=== PATIENT | female | born 1950 | race Caucasian/White ===

== ENCOUNTER → 2016-12-22 | Outpatient (CLI) | payer BC | LOC: GMA 15:09 | PROVIDERS: ATTEND Nurse Practitioner Acute Care | DX: E11.40 Type 2 diabetes mellitus with diabetic neuropathy, unspecified (principal) ==

== ENCOUNTER → 2017-04-18 | Outpatient (CLI) | payer BC ==
--- NOTE | 2017-04-19 09:38 | RAD ---
EXAM DESCRIPTION: Hand,Left 3 Views CLINICAL HISTORY: HAND PAIN COMPARISON: None. IMPRESSION: 3 views of the left hand show no evidence of acute fracture, focal bone destruction, or joint dislocation. Well-circumscribed increased density in the lunate probably represents bone island. Mild narrowing of the interphalangeal joints is seen consistent with early osteoarthritic changes. Soft tissues are unremarkable. Electronically signed by: Jorge Mcconnell MD 04/19/2017 9:37 AM [facility]
== END | disposition home or self-care (01) ==
LOC: RAD 12:03
PROVIDERS: ATTEND Orthopaedic Surgery
DX: M79.642 Pain in left hand (principal)

== ENCOUNTER → 2017-08-29 | Outpatient (CLI) | payer BC | END | disposition home or self-care (01) | LOC: GMAJS 10:43 | PROVIDERS: ATTEND Physician Assistant | DX: Z01.419 Encounter for gynecological examination (general) (routine) without abnormal findings (principal) ==

== ENCOUNTER → 2017-09-05 | Outpatient (CLI) | payer BC | LOC: GMAJ 14:44 | PROVIDERS: ATTEND Family Medicine | DX: E53.8 Deficiency of other specified B group vitamins (principal) ==

== ENCOUNTER → 2017-09-09 | Outpatient (CLI) | payer BC ==
--- NOTE | 2017-09-12 11:27 | CT ---
EXAM DESCRIPTION: Abdoment/Pelvis w/o Contrast CLINICAL HISTORY: 66 years Female, RLQ PAIN COMPARISON: 13 May 2015 TECHNIQUE: Transaxial images were obtained with oral and without intravenous contrast media. Sagittal and coronal reconstruction was performed.This exam was performed according to our departmental dose-optimization program, which includes automated exposure control, adjustment of the mA and/or kV according to patient size and/or use of iterative reconstruction technique. FINDINGS: The lung bases are clear. The liver and spleen are normal in appearance. No biliary ductal dilatation is observed. The gallbladder is normal in appearance. No adrenal masses are detected. The pancreas is normal in appearance. Imaging of the kidneys reveals no evidence of hydronephrosis mass cyst or calcification. Calcific atherosclerotic changes observed in the abdominal aorta without evidence of aneurysmal dilatation. An ostomy is observed in the right lower quadrant. No bone abnormality is seen. The patient is post hysterectomy. IMPRESSION: 1. An ostomy is observed in the right lower quadrant. 2. Hysterectomy Electronically signed by: Boogie Bridges MD 09/12/2017 11:26 AM CDT
== END ==
LOC: CT 08:51
PROVIDERS: ATTEND Family Medicine
DX: R10.31 Right lower quadrant pain (principal); Z90.710 Acquired absence of both cervix and uterus

== ENCOUNTER → 2018-05-11 | Outpatient (CLI) | payer BC, MEDICARE ==
--- NOTE | 2018-05-11 15:35 | MRI ---
Study: MRI of the Left Hip. Indication: M25.559 Technique: Multiplanar, multi sequence MRI of the left hip was obtained without intravenous contrast. Comparison: CT abdomen and pelvis September 12, 2017. Findings: Mild presacral edema/scarring redemonstrated as noted on the previous CT pelvis. Mild pubic symphysis osteoarthritis. Mild bilateral greater trochanter bursal edema, right greater than left. Tendinosis bilateral gluteus minimus/medius tendon insertions. Tendinosis bilateral hamstring tendon origins. Within the proximal left femoral diaphysis there is a subtle ovoid 14 mm PD hyperintense and T1 hypointense focus. No additional similar-appearing lesions identified. Undersurface tearing throughout the anterior superior and superior aspects of the left hip labrum with free edge truncation. Mild left hip osteoarthritis with low-grade chondral thinning and tiny joint line osteophytes. Similar changes of the right hip noted. Impression: Mild bilateral hip osteoarthritis without acute fracture or osteonecrosis. Tearing and truncation anterior superior left hip labrum. Indeterminate lesion within the proximal left femoral diaphysis. Further characterization with radiographs and bone scan recommended. Additional findings as above. Electronically signed by: Joe Cordero MD 05/11/2018 3:33 PM [facility]
== END ==
LOC: MRI 12:49
PROVIDERS: ATTEND Family Medicine
DX: S43.432A Superior glenoid labrum lesion of left shoulder, initial encounter (principal); M16.0 Bilateral primary osteoarthritis of hip; M89.8X5 Other specified disorders of bone, thigh; M25.559 Pain in unspecified hip

== ENCOUNTER → 2018-05-19 | Outpatient (CLI) | payer BC, MEDICARE ==
--- NOTE | 2018-05-19 10:43 | CT ---
EXAM DESCRIPTION: Abdomen/Pelvis w/Contrast CLINICAL HISTORY: 67 years Female, [id number] COMPARISON: CT abdomen and pelvis 09/12/2017. TECHNIQUE: CT of the abdomen and pelvis was acquired with IV contrast material. Coronal and sagittal reformations were provided. This exam was performed according to our departmental dose-optimization program, which includes automated exposure control, adjustment of the mA and/or kV according to patient size and/or use of iterative reconstruction technique. CT ABDOMEN FINDINGS: Lung bases: Clear. Liver: Liver is enlarged measuring up to 17.0 cm the midclavicular line. Gallbladder and biliary: Normal. Pancreas: Normal. Spleen: Normal. Kidneys and adrenal glands: Normal. GI tract: Stomach is normal. No small bowel traction. Peritoneal cavity: No ascites or free air. Stable 3.1 cm area of fat necrosis in the anterior left upper abdomen. Retroperitoneum and lymph nodes: Normal. Vascular: Moderate atherosclerosis. Musculoskeletal and soft tissues: Degenerative changes of spinal no acute fracture or aggressive appearing osseous lesion. Ostomy is within the right lower ventral abdominal wall with no periosteal inflammation or fluid collection. CT PELVIS FINDINGS: GI tract: Stable operative changes of colectomy. Nonobstructive ostomy is unchanged within the right lower ventral abdominal wall. Urinary bladder: Normal. Uterus and adnexa: Uterus is surgically absent. IMPRESSION: 1. No acute abnormality of the abdomen or pelvis. 2. Stable operative changes of colectomy and right lower ventral abdominal ostomy. No evidence of bowel obstruction or periosteal inflammation or fluid collection. 3. Hepatomegaly. 4. Hysterectomy. Electronically signed by: Gurinder Fernandez MD 05/19/2018 10:42 AM [facility]
== END ==
LOC: CT 09:00
PROVIDERS: ATTEND Internal Medicine Gastroenterology
DX: R10.9 Unspecified abdominal pain (principal); R10.10 Upper abdominal pain, unspecified; R16.0 Hepatomegaly, not elsewhere classified; Z90.710 Acquired absence of both cervix and uterus; Z93.4 Other artificial openings of gastrointestinal tract status

== ENCOUNTER 2018-10-21 19:43 | Emergency (ER) | payer OTHER, MEDICARE ==
[2018-10-21 20:28] VITALS: TEMP 98.7
--- NOTE | 2018-10-21 21:10 | ED.PDOC ---
History of Present Illness - General Chief Complaint: Abdominal Pain Stated Complaint: scar tissue pain in abd Time Seen by Provider: 10/21/18 21:01 Information Source: patient Exam Limitations: no limitations - History of Present Illness Initial Comments: THIS PATIENT COMES TO THE ED WITH RECTAL AND ABDOMINAL PAIN. SHE UNDERWENT A TOTAL COLECTOMY FOR ULCERATIVE COLITIS IN 2010. 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 SHE ALSO VOICES THAT THE AREA WHERE THE RECTUM WAS REPAIRED HAS DEVELOPED SCAR TISSUE. SHE HAS HAD THIS PAIN NOW FOR MONTHS AND HAS HAD MULTIPLE STUDIES INCLUDING MRI OF THE ABDOMEN. SHE HAS A SURGEON IN [place] AND IS SCHEDULES TO HAVE THIS SCAR TISSUE REMOVED IN NOVEMBER. SHE IS HERE BECAUSE SHE DESIRES A PAIN SHOT. Abdominal Pain Onset Location: generalized abdomen Quality: moderate, cramping Timing/Duration: 7-24 hours, intermittent Improving Factors: nothing Worsening Factors: nothing Associated Symptoms: denies symptoms Review of Systems - Review of Systems Constitutional: States: no symptoms reported EENTM: States: no symptoms reported Respiratory: States: no symptoms reported Cardiology: States: no symptoms reported Gastrointestinal/Abdominal: States: abdominal pain, diarrhea. Denies: vomiting Genitourinary: States: no symptoms reported Musculoskeletal: States: no symptoms reported Skin: States: no symptoms reported Neurological: States: no symptoms reported Endocrine: States: no symptoms reported Hematologic/Lymphatic: States: no symptoms reported Past Medical History (General) - Patient Medical History Hx Seizures: No Hx Stroke: Yes - fibro myalgia Hx Asthma: No Hx of COPD: No Hx Congestive Heart Failure: No Hx Pacemaker: No Hx Hypertension: No Hx Diabetes: Yes Hx Cancer: Yes - Colon Hx Hepatitis C: No Hx MRSA: Yes MRSA Source:: Wound Surgical History: other - Vaccination History Hx Tetanus, Diphtheria Vaccination: No Hx Influenza Vaccination: No Hx Pneumococcal Vaccination: No - Social History Hx Tobacco Use: Yes - quit 10 years ago Hx Alcohol Use: Yes - infrequently Hx Substance Use: No Hx Substance Use Treatment: No Hx Depression: No Hx Physical Abuse: No Hx Emotional Abuse: No Family Medical History - Family History Mother Family History: No Known Physical Exam - Physical Exam General Appearance: Alert, Well Developed, Well Groomed, Well Hydrated, Well Nourished Eyes, Ears, Nose, Throat Exam: PERRL/EOMI, normal ENT inspection Neck: non-tender, full range of motion, supple, normal inspection Respiratory: chest non-tender, lungs clear, normal breath sounds Cardiovascular/Chest: normal peripheral pulses, regular rate, rhythm, no edema, no gallop, no JVD, no murmur Gastrointestinal/Abdominal: soft, other - HAS AN ILEOSTOMY WITH LIQUID FECES. THE ABDOMEN IS TENDER MOSTLY ON THE EPIGASTRIUM. NO GUARDING AND NO REBOUND TENDERNESS. BOWEL SOUNDS ARE PRESENT. Progress - Progress Progress: 10/21/18 21:47 FEELS MUCH IMPROVED-DESIRES TO GO HOME Departure - Departure Clinical Impression: Abdominal pain Qualifiers: Abdominal location: generalized Qualified Code(s): R10.84 - Generalized abdominal pain Time of Disposition: 21:48 Disposition: Discharge to Home or Self Care Condition: Good Departure Forms: ED Discharge - Pt. Copy, Patient Portal Self Enrollment Instructions: DI for Abdominal Pain-Adult Referrals: Gabe Dumont MD [Primary Care Provider] - 1-2 Weeks Home Medications: Ambulatory Orders Albuterol Sulfate [Proair Hfa] 2 puff INH Q6H PRN 01/28/16 Buspirone HCl 15 mg PO BID 01/28/16 Celecoxib [Celebrex] 200 mg PO BIDFD 01/28/16 Esomeprazole Magnesium [Nexium] 40 mg PO ACBK 01/28/16 Estrogens, Conjugated [Premarin] 0.3 mg PO DAILY 01/28/16 Furosemide [Lasix] 20 mg PO DAILY 01/28/16 Insulin Glargine [Lantus Solostar] 50 unit SC BEDTIME 01/28/16 Insulin Lispro [Humalog] 10 unit SC AC 01/28/16 Sertraline HCl [Zoloft] 100 mg PO BID 01/28/16 Chlorhexidine Gluc 4% 15Ml [Hibiclens 15ml Unit Dose] 15 ml TOP DAILY #0 ud 01/31/16 Ciprofloxacin 500 mg PO BID #100 ml 01/31/16 HYDROcodone 5MG/APAP 325MG [Schneider 5/325] 1 ea PO Q4H PRN #0 tab 01/31/16 Sulfamethoxazole-Trimethoprim [Bactrim Pediatric 200-40 mg/5Ml] 20 ml PO BID #400 hussain 01/31/16
[2018-10-21] MEDS: ONDANSETRON INJ 4 MG/2 ML VIAL IM ONE (21:12)
[2018-10-21] MEDS: HYDROmorphone HCL INJ 2 MG/ML VIAL IM ONE (21:12)
[2018-10-21 21:54] VITALS: BP 140/77; O2SAT 96
== END 2018-10-21 21:55 | disposition home or self-care (01) ==
LOC: ER 19:43
DX: R10.84 Generalized abdominal pain (principal); E11.9 Type 2 diabetes mellitus without complications; M79.7 Fibromyalgia; Z93.2 Ileostomy status; Z90.49 Acquired absence of other specified parts of digestive tract; Z87.891 Personal history of nicotine dependence; Z85.038 Personal history of other malignant neoplasm of large intestine; Z86.73 Personal history of transient ischemic attack (TIA), and cerebral infarction without residual deficits
CPT/HCPCS: J1170; J2405